=== PATIENT | female | born 1990 | race Caucasian/White ===

== ENCOUNTER 2016-08-16 15:11 | Emergency (ER) | payer OTHER ==
[~2016-08-16] VITALS: Ht 175.3 cm; Wt 76.3 kg
[~2016-08-16 15:11] MED LIST: ERYT1O LEFT EYE
[2016-08-16 15:19] VITALS: BP 107/77; PULSE 93; RESP 16; TEMP 98.3; O2SAT 98
--- NOTE | 2016-08-16 16:02 | PD ---
HPI Chief Complaint: [place] Sewer Problem/Complaint Time Seen by Provider: 15:54 Travel History International Travel<30 days: No Contact w/Intl Traveler<30days: No Traveled to known affect area: No History of Present Illness HPI 25-year-old female here for evaluation of lower abdominal/pelvic cramping and vaginal discharge. Symptoms have been intermittent for the last week. Vaginal discharge described as clear/[id number]. No urinary symptoms. No fevers or chills. No nausea or vomiting. No diarrhea. She is sexually active with one partner and does not use protection. History of appendectomy. History of STI in 2011. LMP was 1.5 weeks ago. 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 LAST ONE WAS WHEN SHE WAS ABOUT 8 YEARS OLD) Tetanus Vaccination: < 5 Years Influenza Vaccination: No ?: Not LMP: 1 1/2 weeks ago : 0 Para: 0 Past Surgical History Appendectomy: Yes Other Surgery: No Social History Alcohol Use: Yes (OCCASIONAL- MIX DRINKS) Tobacco Use: Yes (1/2 PPD) Substance Use: Yes (OCC MARIJUANA) Allergies-Medications (Allergen,Severity, Reaction): Coded Allergies: Doxycycline (Verified Adverse Reaction, Severe, Nausea/Vomiting, 08/16/16) *MDRO Multi-Drug Resistant Organism (Unverified Adverse Reaction, Unknown , 08/16/16) MRSA arm wound 08/2014. Reported Meds & Prescriptions Reported Meds & Active Scripts Active No Active Prescriptions or Reported Medications Review of Systems Except as stated in HPI: all other systems reviewed are Neg Physical Exam Narrative GENERAL: Well-developed, well-nourished, comfortable, no acute distress. SKIN: Focused skin assessment warm/dry. HEAD: Atraumatic. Normocephalic. EYES: Pupils equal and round. No scleral icterus. No injection or drainage. ENT: Mucous membranes pink and moist. CARDIOVASCULAR: Regular rate and rhythm. RESPIRATORY: No accessory muscle use. Clear to auscultation. Breath sounds equal bilaterally. GASTROINTESTINAL: Abdomen soft, nondistended. Moderate suprapubic tenderness without rebound or guarding. Mild epigastric tenderness. Rest of abdomen is soft and nontender. Normal bowel sounds. No hernias. CORPORATE GIVING MANAGER: Exam performed in the presence of a female nurse. Normal external genitalia. Scant whitish vaginal discharge that is [id number]. Normal cervix. No CMT. Mild uterine tenderness. No adnexal masses or tenderness. MUSCULOSKELETAL: No obvious deformities. No clubbing. No cyanosis. No edema. NEUROLOGICAL: Awake and alert. No obvious cranial nerve deficits. Motor grossly within normal limits. Normal speech. PSYCHIATRIC: Appropriate mood and affect; insight and judgment normal. Data Data Last Documented VS Vital Signs Date Time Temp Pulse Resp B/P Pulse Ox O2 Delivery O2 Flow Rate FiO2 08/16/16 15:19 98.3 93 16 107/77 98 Orders Gc And Chlamydia Pcr (08/16/16 15:58) Wet Prep Profile (08/16/16 15:58) Urinalysis - C+S If Indicated (08/16/16 15:58) Ed Urine Pregnancytest Poc (08/16/16 16:02) Azithromycin Powd Pack (Zithromax Powd P (08/16/16 16:30) Ceftriaxone Inj (Rocephin Inj) (08/16/16 16:30) Lidocaine 1% Inj (50 Ml) (Xylocaine 1% I (08/16/16 16:30) Ketorolac Inj (Toradol Inj) (08/16/16 16:45) Labs Laboratory Tests Test 08/16/16 08/16/16 16:00 16:15 Urine Color YELLOW Urine Turbidity CLEAR Urine pH 6.0 Urine Specific [place] 1.024 Urine Protein 30 mg/dL Urine Glucose (UA) NEG mg/dL Urine Ketones NEG mg/dL Urine Occult Blood TRACE Urine Nitrite NEG Urine Bilirubin NEG Urine Leukocyte Esterase NEG Urine RBC 0-3 /hpf Urine WBC 0-2 /hpf Urine Squamous Epithelial 6-8 /hpf Cells Urine Bacteria RARE /hpf Urine Mucus MANY /lpf Microscopic Urinalysis Comment CULT NOT INDICATED Clue Cells (Wet Prep) NONE SEEN Vaginal Trichomonas (Wet Prep) NONE SEEN Vaginal Yeast (Wet Prep) NONE SEEN MDM Medical Decision Making Medical Screen Exam Complete: Yes Emergency Medical Condition: Yes Medical Record Reviewed: Yes Differential Diagnosis STI, PID, Trichomonas, BV, UTI, cystitis, TOA, ovarian cyst, ovarian torsion unlikely Narrative Course Vital signs reviewed. Wet prep is negative for yeast, negative for clue cells, negative for Trichomonas. Patient was empirically treated for gonorrhea and chlamydia with Rocephin and azithromycin. Patient's abdominal exam shows mild suprapubic tenderness. She has already had an appendectomy. There are no peritoneal signs. I do not believe that there is an acute intra-abdominal process to warrant further imaging. On pelvic exam there is no CMT, however there is some mild uterine tenderness. No adnexal masses or tenderness. Patient was given IM Toradol and is feeling much improved. I told her to follow-up with her gonorrhea and chlamydia results so she can inform her sexual partner partner to seek treatment. She is stable for discharge home with outpatient follow-up. I will give her the information to the [facility]. She was informed on when to return to the emergency department. She verbalizes understanding and agreement with plan. Diagnosis Primary Impression: PID (pelvic inflammatory disease) Referrals: [facility] 1 week Additional Instructions: Follow-up in the [facility] this week. Return to the emergency department for worsening symptoms or any other concerns. Scripts No Active Prescriptions or Reported Meds Disposition: 01 DISCHARGE HOME Condition: Stable Coleman Berry MD Aug 16, 2016 16:02
[2016-08-16 16:21] LABS: BLOOD, URINE TRACE (NEG); GLUCOSE,URINE NEG (NEG); KETONE, URINE NEG (NEG); NITRITE,URINE NEG (NEG)
[2016-08-16 16:29] LABS: URINE COLOR YELLOW (YELLW/STRAW)
[2016-08-16 16:30] LABS: MUCUS URINE MANY /lpf (OCC); WBC, URINE 0-2 /hpf (0-5)
[2016-08-16] MEDS ORDERED: AZITHROMYCIN PWD FOR SUSP 1 GM PACKET PO ONE (16:30)
[2016-08-16] MEDS ORDERED: LIDOCAINE HCL 1% 50 ML VIAL IM ONE (16:30)
[2016-08-16] MEDS ORDERED: cefTRIAXone 250 MG VIAL IM ONE (16:30)
[2016-08-16 16:31] LABS: BACTERIA, URINE RARE /hpf; COMMENT (UR) CULT NOT INDICATED; CULTURE IF INDICATED CULT NOT INDICATED; RBC, URINE 0-3 /hpf (0-3)
[2016-08-16] MEDS ORDERED: KETOROLAC TROMETHAMINE 60 MG/2 ML (IM) VIAL IM ONE (16:45)
[2016-08-16 17:45] VITALS: BP 105/70
[2016-08-16 21:13] LABS: CHLAMYDIA PCR NOT DETECTED (NOT DETECT); NEISSERIA PCR NOT DETECTED (NOT DETECT)
== END 2016-08-16 17:52 | disposition home or self-care (01) ==
LOC: PHED 15:11
DX: N73.9 Female pelvic inflammatory disease, unspecified (principal); F17.210 Nicotine dependence, cigarettes, uncomplicated; Z86.14 Personal history of Methicillin resistant Staphylococcus aureus infection
CPT/HCPCS: 81001; 84703; 87210; 87491; 87591; 96372; 99284; J0696; J1885

== ENCOUNTER 2017-02-18 23:30 | Emergency (ER) | payer OTHER ==
[~2017-02-18] VITALS: Ht 175.3 cm; Wt 80.0 kg
[2017-02-18 23:32] VITALS: BP 132/86; PULSE 89; RESP 15; TEMP 98.5; O2SAT 98
== END 2017-02-19 01:35 | disposition left against medical advice (07) ==
LOC: NED 23:30
DX: M79.89 Other specified soft tissue disorders (principal)
CPT/HCPCS: 99281

== ENCOUNTER 2017-04-14 14:15 | Emergency (ER) | payer OTHER ==
[~2017-04-14] VITALS: Ht 175.3 cm; Wt 86.4 kg
[2017-04-14 14:16] VITALS: BP 121/64; PULSE 102; RESP 16; TEMP 98.2; O2SAT 97
--- NOTE | 2017-04-15 16:30 | EKG ---
Date Performed: 04/14/2017 Time Performed: 14:24:51 PTAGE: 26 years EKG: Sinus rhythm POSSIBLE RIGHT VENTRICULAR CONDUCTION DELAY BORDERLINE ECG NO PREVIOUS TRACING DOCTOR: Jh Hamilton Interpretating Date/Time 04/15/2017 16:27:59
== END 2017-04-14 16:15 | disposition left against medical advice (07) ==
LOC: PHED 14:15
DX: R07.9 Chest pain, unspecified (principal)
CPT/HCPCS: 93005; 99281